=== PATIENT | male | born 1950 | race Caucasian/White ===

== ENCOUNTER → 2019-03-18 09:36 | Outpatient (CLI) | payer MEDICARE, OTHER, SELFPAY ==
--- NOTE | 2019-03-18 | DI.RAD.S_ITS ---
PROCEDURE: XR HIP W PEL IF DONE LT 2V INDICATIONS: Lt hip pain TECHNIQUE: AP pelvis with lateral view(s) of the left hip(s). COMPARISON: None. FINDINGS: Bones: No acute fracture or dislocation. There is mild bilateral hip joint space narrowing and sclerosis. Soft tissues: The visualized bowel gas pattern is normal. No suspicious soft tissue calcifications. There are extensive surgical clips throughout the pelvis. IMPRESSION: Moderate bilateral osteoarthritis. Dictated by: Wilda Foy M.D. on 03/18/2019 at 13:19 Approved by: Wilda Foy M.D. on 03/18/2019 at 13:20
== END ==
PROVIDERS: PCP Family Medicine; Visit Provider Family Medicine
DX: M16.0 Bilateral primary osteoarthritis of hip (principal); M25.552 Pain in left hip
CPT/HCPCS: 73502

== ENCOUNTER → 2019-06-23 09:31 | Outpatient (CLI) | payer MEDICARE, OTHER, SELFPAY ==
--- NOTE | 2019-06-23 | DI.RAD.S_ITS ---
PROCEDURE: XR SHOULDER RT MIN 2V INDICATIONS: RIGHT SHOULDER PAIN TECHNIQUE: 3 views of the shoulder were acquired. COMPARISON: None. FINDINGS: Bones: No fractures or dislocations. No suspicious bony lesions. Visualized ribs appear intact. Moderate right shoulder joint degeneration. Prominent subacromial spur. Soft tissues: No suspicious soft tissue calcifications. IMPRESSION: Moderate right shoulder joint degeneration. Prominent subacromial spur. Dictated by: Jose Elias Hope M.D. on 06/23/2019 at 11:20 Approved by: Jose Elias Hope M.D. on 06/23/2019 at 11:22
== END ==
PROVIDERS: PCP Family Medicine; Visit Provider Family Medicine
DX: M25.511 Pain in right shoulder (principal); M19.011 Primary osteoarthritis, right shoulder; M75.91 Shoulder lesion, unspecified, right shoulder
CPT/HCPCS: 73030

== ENCOUNTER → 2021-02-23 07:46 | Outpatient (CLI) | payer MEDICARE, OTHER, SELFPAY ==
--- NOTE | 2021-02-23 07:54 | DI.CT.S_ITS ---
PROCEDURE: CT HEAD/BRAIN WO CON INDICATIONS: Headache, unspecified TECHNIQUE: Noncontrast 4.5 mm thick angled axial sections acquired from the foramen magnum to the vertex, with coronal and sagittal reformats. For radiation dose reduction, the following was used: automated exposure control, adjustment of mA and/or kV according to patient size. COMPARISON: None. FINDINGS: Image quality: Excellent. CSF spaces: Basal cisterns are patent. No extra-axial fluid collections. The ventricles are symmetric in size and shape. Brain: No intracranial bleeds or masses. There is mild cerebral volume loss for age, with resultant ventricular and sulcal prominence. There are mild periventricular and deep white matter chronic small vessel ischemic changes. Small chronic left basal ganglia lacunar infarct. There is intracranial internal carotid artery and vertebral artery atherosclerosis. Skull and face: Calvarium and visualized facial bones appear intact, without suspicious lesions. Sinuses: Visualized sinuses and mastoids are clear. IMPRESSION: No acute intracranial disease process. No intracranial hemorrhage. No abnormal intracranial mass or mass effect. Dictated by: Sushma Hernández MD, PhD on 02/23/2021 at 9:05 Approved by: Sushma Hernández MD, PhD on 02/23/2021 at 9:07
== END ==
PROVIDERS: PCP Family Medicine; Referring Provider Family Medicine; Visit Provider Family Medicine
DX: R51.9 Headache, unspecified (principal); I65.29 Occlusion and stenosis of unspecified carotid artery; I67.2 Cerebral atherosclerosis
CPT/HCPCS: 70450

== ENCOUNTER → 2021-11-03 13:10 | Outpatient (CLI) | payer MEDICARE, OTHER, SELFPAY ==
--- NOTE | 2021-11-03 | DI.RAD.S_ITS ---
PROCEDURE: XR SHOULDER RT MIN 2V INDICATIONS: Unspecified rotator cuff tear or rupture of unspecified shou TECHNIQUE: 3 views of the shoulder were acquired. COMPARISON: [facility], CR, XR SHOULDER RT MIN 2V, 06/23/2019, 10:15. FINDINGS: Bones: No fractures or dislocations. Moderate acromioclavicular joint and glenohumeral joint osteoarthritic changes are seen. Previously noted prominent subacromial spur is no longer seen which may represent interval resection. No suspicious bony lesions. Visualized ribs appear intact. Soft tissues: No suspicious soft tissue calcifications. IMPRESSION: Moderate right shoulder joint osteoarthritis. No fracture or dislocation. No gross soft tissue abnormality. Dictated by: Anurag Douglas M.D. on 11/03/2021 at 15:39 Approved by: Anurag Douglas M.D. on 11/03/2021 at 15:40
== END ==
PROVIDERS: PCP Family Medicine; Referring Provider Family Medicine; Visit Provider Family Medicine
DX: M19.011 Primary osteoarthritis, right shoulder (principal)
CPT/HCPCS: 73030

== ENCOUNTER → 2021-12-13 10:24 | Outpatient (ROUT) | payer MEDICARE, OTHER, SELFPAY ==
[2021-12-13 12:39] LABS: COVID-19 CEPHEID PCR (VTM/NP) Negative (Negative)
== END ==
PROVIDERS: PCP Family Medicine; Visit Provider Family Medicine
DX: J06.9 Acute upper respiratory infection, unspecified (principal)
CPT/HCPCS: U0003; U0005

== ENCOUNTER 2022-05-15 12:40 | Emergency (ER) | payer MEDICARE, OTHER, SELFPAY ==
--- NOTE | 2022-05-15 13:02 | PC.NURSE ---
called from [facility] with no answer
[2022-05-15 13:15] VITALS: BP 148/67; PULSE 84; RESP 18; TEMP 37.6; O2SAT 97
--- NOTE | 2022-05-15 13:19 | DI.RAD.S_ITS ---
PROCEDURE: XR KNEE LT 3V INDICATIONS: No indication was given TECHNIQUE: 3 views of the knee were acquired. COMPARISON: None. FINDINGS: Bones: Chondrocalcinosis. Mild to moderate degenerative changes. No displaced fracture is identified. Soft tissues: Large joint effusion. IMPRESSION: No dislocation. No displaced fracture. However, there is a large joint effusion. If there is high concern for occult injury or internal derangement, consider cross-sectional imaging. Dictated by: Cristino Mcdaniel M.D. on 05/15/2022 at 15:41 Approved by: Cristino Mcdaniel M.D. on 05/15/2022 at 15:43
[2022-05-15 13:57] VITALS: BP 137/68; PULSE 67; RESP 18; O2SAT 98
--- NOTE | 2022-05-15 14:11 | ED_ITS ---
HPI - Extremity Injury (Lower) <Shawn Syed PA-C - Last Filed: 05/15/22 14:11> General Chief Complaint: Extremity Injury, Lower Stated Complaint: Left knee pain, Swelling Time Seen by Provider: 05/15/22 13:48 Source: patient Mode of arrival: Wheelchair Related Data Previous Rx's Medication Instructions Recorded tramadol 50 mg tablet 50 mg PO TID PRN pain #14 tabs 05/15/22 Allergies Allergy/AdvReac Type Severity Reaction Status Date / Time No Known Drug Allergies Allergy Verified 05/15/22 13:19 <Alexi Bales DO - Last Filed: 05/15/22 15:08> History of Present Illness HPI Narrative: Patient is a 72-year-old male here for evaluation of pain and swelling to his left knee. He states that he started noticing the discomfort on Sunday and it has been worsening since then. He denies any specific trauma to the knee. No prior injuries to his knee. He does have a history of arthritis. Denies any fevers. No prior surgeries. Has been trying aspirin at home without any improvement of the symptoms. No history of gout. Difficult for him to walk on his knee. <DO Thony Frost Last Filed: 05/15/22 15:08> Constitutional Constitutional: Denies fever(s) Musculoskeletal Musculoskeletal: Reports system reviewed and no additional complaints, except as documented Integumentary/Breasts Skin/Breast: Reports system reviewed and no additional complaints, except as documented Neurologic Neurologic: Reports system reviewed and no additional complaints, except as documented Hematologic/Lymphatic On Anticoagulants: No Patient History <IKER Medel Last Filed: 05/15/22 14:11> Social History Smoking Status: Never smoker Smoking Status: Never smoker Exam <IKER Medel Last Filed: 05/15/22 14:11> Initial Vital Signs Initial Vital Signs: Vital Signs Temperature 99.6 F 05/15/22 13:15 Pulse Rate 84 05/15/22 13:15 Respiratory Rate 18 05/15/22 13:15 Blood Pressure 148/67 H 05/15/22 13:15 Pulse Oximetry 97 05/15/22 13:15 Oxygen Delivery Method 05/15/22 13:15 <Alexi Bales DO - Last Filed: 05/15/22 15:08> Initial Vital Signs Initial Vital Signs: Vital Signs Temperature 99.6 F 05/15/22 13:15 Pulse Rate 84 05/15/22 13:15 Respiratory Rate 18 05/15/22 13:15 Blood Pressure 148/67 H 05/15/22 13:15 Pulse Oximetry 97 05/15/22 13:15 Oxygen Delivery Method 05/15/22 13:15 HENOH Head: normal to inspection and normocephalic Resp Effort & Inspection: normal respiratory effort Skin General: no rashes or lesions noted Neuro General: patient alert, patient awake, patient oriented x3 and moves all extremities Sensory Exam: no sensory deficits noted Extrem Other: His left hip and left ankle unremarkable. Left calf is unremarkable. He does have an obvious effusion to his left knee with tenderness to palpation throughout. Difficult for him to flex and extend because of the discomfort. Th ere is no overlying erythema. Only minimal warmth over the area. Course <Shawn Syed PA-C - Last Filed: 05/15/22 14:11> Orders Ordered: ED Orders 05/15/22 13:19 XR knee LT 3V Stat Vital Signs Vital signs: Vital Signs - 8 hr 05/15/22 13:15 05/15/22 13:57 Temperature 99.6 F Pulse Rate 84 67 Respiratory Rate 18 18 Blood Pressure 148/67 H 137/68 Pulse Oximetry 97 98 Oxygen Delivery Method Room Air Room Air <DO Thony Frost Last Filed: 05/15/22 15:08> Orders Ordered: ED Orders 05/15/22 13:19 XR knee LT 3V Stat Vital Signs Vital signs: Vital Signs - 8 hr 05/15/22 13:15 05/15/22 13:57 Temperature 99.6 F Pulse Rate 84 67 Respiratory Rate 18 18 Blood Pressure 148/67 H 137/68 Pulse Oximetry 97 98 Oxygen Delivery Method Room Air Room Air <DO Thony Frost Last Filed: 05/15/22 15:08> Imaging Data Extremity x-ray #1: My Impression: No fractures or dislocations. [facility] Narrative Medical decision making narrative: Patient is well-appearing. No fractures dislocations noted on the x-rays. He does not have a history of gout. He does have an effusion of his left knee however there is no erythema over the area. Is only minimally warm compared to the right knee. Of fevers. We did discuss the possibility of a septic joint. Discussed the risks and benefits of a arthrocentesis. My suspicion for a septic joint today is low and I discussed this with him. Feel that this is most likely a flare of osteoarthritis. We also discussed the possibility of a meniscal injury that would not show up on the x-rays. Low suspicion for ligamentous injury. Plan will be is for conservative treatment for now. He will keep it elevated and iced. He does have crutches at home. We discussed the use of aspirin at home. He was given strict return precautions. He expressed understanding and agreement. Discharge Plan Departure Patient Disposition: Home Clinical Impression: Arthritis Instructions: DI for Knee Effusion, DI for Arthritis Activity Restrictions/Additional Instructions: I recommend that if you are taking the 325 mg aspirin in the evening that you do not take the 2 baby aspirins during the day. A prescription for some pain medication sent to [facility] in [place]. Please take it as needed. Also recom mend that you keep your the elevated. Keep ice over it. Use the crutches as needed. Contact your primary doctor for follow-up. If you start to have worsening symptoms, redness of the skin or fevers please return to the emergency department for further evaluation. Prescriptions: New tramadol 50 mg tablet 50 mg PO TID PRN (Reason: pain) Qty: 14 0RF Referrals: Darlene Thomas MD [Primary Care Provider] -
[2022-05-15 15:12] VITALS: BP 130/60; PULSE 60; RESP 18; O2SAT 98
== END 2022-05-15 15:12 | disposition home or self-care (01) ==
PROVIDERS: Emergency Provider Emergency Medicine; PCP Family Medicine
DX: M17.12 Unilateral primary osteoarthritis, left knee (principal)
CPT/HCPCS: 73562; 99281; 99283